=== PATIENT | male | born 1990 | race Two or more races ===

== ENCOUNTER 2016-06-05 12:20 | Emergency (ER) | payer MEDICAID ==
[~2016-06-05] VITALS: Ht 160 cm; Wt 61.2 kg
[~2016-06-05 12:20] MED LIST: IBUPROFEN600 MG ORAL; NKM
[2016-06-05] MEDS ORDERED: IBUPROFEN600 MG ORAL (13:15)
[2016-06-05 13:16] VITALS: BP 106/72
--- NOTE | 2016-06-05 14:10 | Emergency Room Report ---
History of Present Illness General Chief Complaint: Lower Extremity Injury Source: Patient Present Illness [facility] The patient is a 26-year-old male presenting with left ankle and foot pain which occurred today. The patient states that he was running and felt the left ankle buckle underneath him. Pain is described as a 9/10 dull ache to the outside of the ankle and left side of foot. Pain does not radiate. Patient denies any numbness or tingling. Patient denies prior injury to these areas. Pt denies any other Sx including F, chills Allergies: Coded Allergies: No Known Allergies (Unverified , 11/24/15) Patient History Past Medical History: see triage record Pertinent Family History: none Reviewed Nursing Documentation: PMH: Agreed, PSxH: Agreed Nursing Documentation-PMH Past Medical History: No Stated History Review of Systems All Other Systems: negative except mentioned in HPI Physical Exam Vital Signs Date Time Temp Pulse Resp B/P Pulse Ox O2 Delivery O2 Flow Rate FiO2 06/05/16 12:32 98.4 77 16 106/72 99 Room Air Sp02 EP Interpretation: reviewed, normal General Appearance: no apparent distress, alert, GCS 15, non-toxic Head: normocephalic, atraumatic Eyes: bilateral eye PERRL, bilateral eye normal inspection ENT: hearing grossly normal, normal pharynx, no angioedema, normal voice Genitourinary: normal inspection, no CVA tenderness Musculoskeletal: normal range of motion, no calf tenderness, swelling - edema to L lateral ankle, tender - TTP over L lateral anklle Neurologic: alert, oriented x3, responsive, motor strength/tone normal, sensory intact, speech normal Psychiatric: judgement/insight normal, memory normal, mood/affect normal, no suicidal/homicidal ideation Reflexes: 3+ bicep (R), 3+ bicep (L), 3+ tricep (R), 3+ tricep (L), 3+ knee (R) , 3+ knee (L) Skin: normal color, no rash, warm/dry, well hydrated Lymphatic: no adenopathy Procedures Splinting Splinting : Consent: Verbal Location: L ankle Pre-Made Type: ALONZO wrap Pre-Proc Neuro Vasc Exam: normal Post-Proc Neuro Vasc Exam: normal Patient Tolerated: Well Complications: None Medical Decision Making PA Attestation Dr. Ramon is my supervising physician. Patient management was discussed with my supervising physician Diagnostic Impression: Primary Impression: Left ankle sprain ER Course The patient is a 26-year-old male presenting with left ankle and foot pain which occurred today Ddx considered include but not limited to sprain/strain, fracture, contusion Physical exam: Vitals within normal limits her no current distress There is tenderness to palpation over the left lateral ankle with overlying edema. No ecchymosis. Sensation intact to light touch. Full active range of motion. No obvious deformity X-ray of the ankle and foot are both unremarkable Alonzo wrap is placed over her left ankle and patient is given crutches. The patient is given rice instructions. Patient given prescription for Motrin and will followup with primary care physician. ER precautions are given Last Vital Signs Date Time Temp Pulse Resp B/P Pulse Ox O2 Delivery O2 Flow Rate FiO2 06/05/16 13:16 98.5 16 106/72 99 Room Air 06/05/16 12:32 77 Status: improved Disposition: HOME, SELF-CARE Condition: Improved Scripts Ibuprofen* (MOTRIN*) 600 Mg Tablet 600 MG ORAL Q8H Y for For Pain, #30 TAB 0 Refills Prov: HERMINIA CORONA 06/05/16 Patient Instructions: Ankle Sprain Additional Instructions: I discussed my findings with the patient. All questions and concerns have been answered. Treatment and medication compliance have been addressed. I advised the patient that they need to follow up with PMD in 3-5 days. Return to ED if pain remains or worsens, numbness or tingling occurs, new rash is noticed, fever is noticed, or if needed for any reason. Patient verbalized understanding of discharge instructions. HERMINIA CORONA Jun 05, 2016 14:10
--- NOTE | 2016-06-05 16:04 | Diagnostic Imaging Report ---
Indication: PAIN Technique: 3 views left foot Comparison: none Findings: No acute fractures. No dislocations. Joint spaces are preserved. Impression: Negative
--- NOTE | 2016-06-05 16:05 | Diagnostic Imaging Report ---
Indication: PAIN Technique: 3 views of the left ankle Comparison: none Findings: No acute fractures. No dislocations. Joint spaces are preserved Impression: Negative
== END 2016-06-05 13:25 | disposition home or self-care (01) ==
LOC: EMR 12:46
DX: S93.402A Sprain of unspecified ligament of left ankle, initial encounter (principal); X58.XXXA Exposure to other specified factors, initial encounter; Y93.02 Activity, running; Y92.9 Unspecified place or not applicable; Y99.8 Other external cause status
CPT/HCPCS: 29540; 99284

== ENCOUNTER 2017-12-31 22:54 | Emergency (ER) | payer MEDICAID ==
[~2017-12-31] VITALS: Ht 157.5 cm; Wt 63.5 kg
[2017-12-31 23:18] VITALS: BP 115/75
[2017-12-31] MEDS ORDERED: Norco 5mg/325mg tab ORAL ONE (23:30)
[2018-01-01] MEDS ORDERED: IBUPROFEN600 MG ORAL (01:00)
--- NOTE | 2018-01-01 01:00 | Emergency Room Report ---
History of Present Illness General Chief Complaint: Lower Back Pain or Injury Source: Patient Present Illness HPI Is a 27-year-old male with no cerumen past medical history. He presents complaining of lower back pain. He was walking and slipped and fell on his butt. This occurred earlier today. He complaining of lower back pain and coccyx pain. No loss of consciousness. Pain is 8 out of 10. Worse with movement. No fever chills but no nausea no vomiting. No unconscious or bowel or urine. Allergies: Coded Allergies: No Known Allergies (Unverified , 11/24/15) Patient History Past Medical History: see triage record, old chart reviewed Past Surgical History: none Pertinent Family History: none Social History: Denies: smoking Immunizations: other Reviewed Nursing Documentation: PMH: Agreed; PSxH: Agreed Nursing Documentation-PM Past Medical History: No Stated History Review of Systems Eye: Denies: eye pain, blurred vision ENT: Denies: ear pain, nose congestion, throat swelling Respiratory: Denies: cough, shortness of breath Cardiovascular: Denies: chest pain, palpitations Gastrointestinal: Denies: abdominal pain, diarrhea, nausea, vomiting Musculoskeletal: Reports: back pain; Denies: joint pain Skin: Denies: rash Neurological: Denies: headache, numbness Endocrine: Denies: increased thirst, increased urine Hematologic/Lymphatic: Denies: easy bruising All Other Systems: negative except mentioned in HPI Physical Exam Vital Signs Date Time Temp Pulse Resp B/P (MAP) Pulse Ox O2 Delivery O2 Flow Rate FiO2 12/31/17 23:05 97.7 76 16 115/75 99 Room Air 97.7 vitals normal Sp02 EP Interpretation: reviewed, normal General Appearance: well appearing, no apparent distress, alert Head: normocephalic, atraumatic Eyes: bilateral eye PERRL, bilateral eye EOMI ENT: hearing grossly normal, normal pharynx Neck: full range of motion, supple, no meningismus Respiratory: chest non-tender, lungs clear, normal breath sounds Cardiovascular #1: regular rate, rhythm, no murmur Gastrointestinal: normal bowel sounds, non tender, no mass, no organomegaly, no bruit, non-distended Musculoskeletal: back normal - Lower back tenderness, gait/station normal, normal range of motion Neurologic: alert, oriented x3 Psychiatric: mood/affect normal Skin: warm/dry Medical Decision Making Diagnostic Impression: Primary Impression: Low back pain Qualified Codes: M54.5 - Low back pain ER Course Patient with lower back pain. No fracture dislocation. No evidence of cauda equina syndrome, spinal epidural abscess or neoplastic process. CT/MRI/US Diagnostic Results CT/MRI/US Diagnostic Results : Imaging Test Ordered: CT L-spine Impression Read by radiologist. Negative. Last Vital Signs Date Time Temp Pulse Resp B/P (MAP) Pulse Ox O2 Delivery O2 Flow Rate FiO2 01/01/18 00:06 97.7 12/31/17 23:18 76 16 115/75 99 Room Air Status: improved Disposition: HOME, SELF-CARE Condition: Stable Scripts Ibuprofen* (MOTRIN*) 600 Mg Tablet 600 MG ORAL THREE TIMES A DAY, #30 TAB 0 Refills Prov: ROBIN ALFORD M.D. 01/01/18 Referrals: NOT CHOSEN [facility]/,REFERRING (PCP) Patient Instructions: Lumbosacral Strain Additional Instructions: Follow-up with your doctor in 7 days. Return if symptom worsen. ROBIN ALFORD M.D. Jan 01, 2018 01:00
[2018-01-01 01:05] VITALS: BP 105/70
[2018-01-01 01:10] VITALS: BP 105/70
--- NOTE | 2018-01-01 03:20 | Diagnostic Imaging Report ---
EXAM: CT Lumbar Spine Without Intravenous Contrast CLINICAL HISTORY: Status post fall. Lower back pain TECHNIQUE: Axial computed tomography images of the lumbar spine without intravenous contrast. CTDI is 12 mGy and DLP is 430 mGy-cm. One or more of the following dose reduction techniques were used: automated exposure control, adjustment of the mA and/or kV according to patient size, use of iterative reconstruction technique. COMPARISON: No relevant prior studies available. FINDINGS: Vertebrae: Unremarkable. No acute fracture. Discs/spinal canal/neural foramina: No acute findings. No spinal canal stenosis. Soft tissues: Unremarkable. Stomach and bowel: There is a moderate amount of stool throughout the colon. IMPRESSION: No acute fracture.
== END 2018-01-01 01:10 | disposition home or self-care (01) ==
LOC: EMR 23:55
DX: M54.5 Low back pain (principal)
CPT/HCPCS: 72131; 99284